=== PATIENT | male | born 1960 | race Caucasian/White ===

== ENCOUNTER → 2024-03-25 18:27 | Outpatient (CLI) | payer OTHER, SELFPAY ==
--- NOTE | 2024-03-25 18:36 | DI.MRI.S_ITS ---
PROCEDURE: MR ELBOW LT W CON INDICATIONS: Strain of muscle, fascia and tendon of other parts TECHNIQUE: Noncontrast coronal proton density fast spin echo and T2 fast spin echo with fat saturation, axial and sagittal T1 spin echo and T2 fast spin echo with fat saturation through the elbow. COMPARISON: None. FINDINGS: Image quality: Excellent. Lateral structures: The lateral ulnar collateral ligament and radial collateral ligament both appear intact. Low-grade tear of the common extensor tendon origin. Medial structures: Low-grade interstitial tear of the ulnar collateral ligament . Mild tendinosis of the common flexor tendon origin, without tear. The ulnar nerve appears normal in size and signal within the cubital tunnel. Anterior structures: Full-thickness tear of the distal biceps tendon from the radial tuberosity insertion, with mild tendon retraction approximately 2.2 centimeter. The torn tendon stump is coiled at the level of the radial neck. The brachialis tendon is unremarkable. The median and radial neurovascular bundles appear normal; no focal muscle atrophy to suggest nerve impingement. Posterior structures: The conjoint triceps tendon from the long and lateral heads appears intact. The medial head of the triceps tendon also appears normal, with direct muscle insertion onto the olecranon. No olecranon bursal fluid. Bone and cartilage: No bone marrow contusions or fractures. No osteochondral injuries. IMPRESSION: 1. Full-thickness tear of the distal biceps tendon from the radial tuberosity with mild tendon retraction. 2. Low-grade tear of the ulnar collateral ligament. 3. Low-grade tear of the common extensor tendon origin. Dictated by: Mary Alvarez M.D. on 03/26/2024 at 10:14 Approved by: Mary Alvarez M.D. on 03/26/2024 at 10:23
== END ==
LOC: MRI 18:31
PROVIDERS: PCP Family Medicine; Referring Provider Physician Assistant Medical; Visit Provider Physician Assistant Medical
DX: S46.212A Strain of muscle, fascia and tendon of other parts of biceps, left arm, initial encounter (principal); S53.442A Ulnar collateral ligament sprain of left elbow, initial encounter; S56.512A Strain of other extensor muscle, fascia and tendon at forearm level, left arm, initial encounter; X58.XXXA Exposure to other specified factors, initial encounter
CPT/HCPCS: 73221